=== PATIENT | female | born 1965 | race Caucasian/White ===

== ENCOUNTER 2019-06-05 07:22 | Emergency (ER) | payer OTHER ==
[2019-06-05 07:32] VITALS: BP 122/78
--- NOTE | 2019-06-05 08:01 | UC ---
Throat Pain/Nasal Saul HPI - HPI Summary HPI Summary: Patient is a 53yo female presenting with sore throat x6 days that she feels is not improving. States she is concerned for strep. Denies fever, chills, fatigue, headaches. Denies nasal congestion and cough. Denies nausea, vomiting , diarrhea, and abdominal pain. She feels like she is now getting laryngitis since waking up this morning. - History of Current Complaint Chief Complaint: UCGeneralIllness Stated Complaint: SORE THROAT Hx Obtained From: Patient Severity: Severe Pain Intensity: 9 Pain Scale Used: 0-10 Numeric - Allergies/Home Medications Allergies/Adverse Reactions: Allergies Allergy/AdvReac Type Severity Reaction Status Date / Time latex Allergy unk Verified 06/05/19 07:33 shellfish derived Allergy rapid Verified 06/05/19 07:33 heart rate PMH/Surg Hx/FS Hx/Imm Hx Previously Healthy: Yes - Surgical History Surgical History: Yes Surgery Procedure, Year, and Place: BIOPSY NEAR LEFT NIPPLE,. SPLEENECTOMY 1974. TONSILS 1986. C SECTION 1997 - Family History Known Family History: Positive: Non-Contributory - Social History Alcohol Use: None Alcohol Amount: 3 glasses/month Substance Use Type: None Smoking Status (MU): Former Smoker Review of Systems All Other Systems Reviewed And Are Negative: Yes Constitutional: Negative: Fever, Chills, Fatigue ENT: Positive: Sore Throat. Negative: Ear Ache, Nasal Discharge, Sinus Congestion, Sinus Pain/Tenderness Respiratory: Positive: Negative Cardiovascular: Positive: Negative Gastrointestinal: Positive: Negative Musculoskeletal: Negative: Myalgia Neurological: Positive: Negative. Negative: Headache Physical Exam Triage Information Reviewed: Yes Appearance: Well-Appearing, No Pain Distress, Well-Nourished Vital Signs: Initial Vital Signs Temp 98.8 F 06/05/19 07:29 Pulse 81 06/05/19 07:29 Resp 15 06/05/19 07:29 BP 122/78 06/05/19 07:29 Pulse Ox 100 06/05/19 07:29 Lab Results 06/05/19 Range/Units 07:40 Group A Strep Rapid Negative (Negative) Eyes: Positive: Conjunctiva Clear ENT: Positive: Hearing grossly normal, Pharyngeal erythema, TMs normal, Uvula midline. Negative: Nasal congestion, Nasal drainage, TM bulging, TM dull, TM red, Tonsillar swelling, Tonsillar exudate, Trismus, Muffled voice, Hoarse voice , Sinus tenderness Neck exam: Normal Neck: Positive: Supple, Nontender, No Lymphadenopathy Respiratory Exam: Normal Respiratory: Positive: Lungs clear, Normal breath sounds, No respiratory distress. Negative: Crackles, Rhonchi, Stridor, Wheezing Cardiovascular Exam: Normal Cardiovascular: Positive: RRR Neurological: Positive: Alert Psychological: Positive: Age Appropriate Behavior Throat Pain/Nasal Course/Dx - Course Course Of Treatment: Discussed negative strep and likely viral etiology of symptoms. Instructed her to continue symptomatic treatment and to follow up with PCP if symptoms persist. Patient voiced understanding and agreed with the treatment plan. - Differential Dx/Diagnosis Provider Diagnosis: Pharyngitis Discharge ED - Sign-Out/Discharge Documenting (check all that apply): Patient Departure All imaging exams completed and their final reports reviewed: No Studies - Discharge Plan Condition: Stable Disposition: HOME Patient Education Materials: Pharyngitis (ED) Referrals: Sammy Sanches MD [Primary Care Provider] - If Needed Additional Instructions: As discussed, you tested negative for strep throat today. You may take ibuprofen for pain relief. You may use over the counter throat sprays or lozenges for symptomatic relief. Get plenty of rest and fluids. Follow up with your primary care physician if your symptoms persist. - Billing Disposition and Condition Condition: STABLE Disposition: Home - Attestation Statements Provider Attestation: I was available for consult. This patient was seen by the [facility]. The patient was not presented to, seen by, or examined by me. -Constanza
== END 2019-06-05 08:31 | disposition home or self-care (01) ==
LOC: UCEAST 07:22
DX: J02.9 Acute pharyngitis, unspecified (principal); Z91.040 Latex allergy status; Z91.013 Allergy to seafood; Z87.891 Personal history of nicotine dependence
CPT/HCPCS: 87651; 99212; G0463